=== PATIENT | female | born 1965 | race Hispanic/Latino ===

== ENCOUNTER → 2017-06-26 | Outpatient (CLI) | payer OTHER ==
[~2017-06-26] MED LIST: AEC81 PO; CALC-1038 PO; CETI-101 PO; CHOL200016 PO; LEVO175T9 PO; LEVO200T10 PO; PANT40TA PO; TRAM50TA4 PO; VALS160T2 PO
[2017-06-26 11:51] LABS: BASOPHILS % (AUTO) 0.8 % (0.0-5.0); EOSINOPHILS % (AUTO) 1.8 % (0.0-8.0); HEMATOCRIT 38.9 % (36-48); LYMPHOCYTES % (AUTO) 42.4 % (21.0-51.0); MEAN CORPUSCULAR HEMOGLOBIN 29.7 pg (27.0-33.0); MEAN CORPUSCULAR HGB CONC 34.3 g/dL (32.0-36.0); MEAN CORPUSCULAR VOLUME 86.8 fL (79-99); PLATELET COUNT (AUTO) 216 K/uL (130-400); RED BLOOD CELL COUNT(AUTO) 4.49 MIL/uL (4.00-5.50); RED CELL DISTRIBUTION WIDTH 13.3 % (11.0-15.5); WHITE BLOOD COUNT (AUTO) 6.3 K/uL (4.8-10.8)
[2017-06-26 11:56] LABS: HEMOGLOBIN A1C 6.1 % (4.0-6.0)
[2017-06-26 12:08] LABS: BILIRUBIN,TOTAL 0.6 mg/dL (0.2-1.0); CREATININE 0.7 mg/dL (0.5-1.5); POTASSIUM 3.7 mmol/L (3.5-5.1); THYROID STIMULATING HORMONE 7.96 uIU/mL (0.36-3.74); TOTAL PROTEIN, SERUM 7.4 g/dL (6.0-8.3)
== END | disposition home or self-care (01) ==
LOC: LAB 09:57
PROVIDERS: ATTEND Internal Medicine Endocrinology, Diabetes & Metabolism
DX: E11.65 Type 2 diabetes mellitus with hyperglycemia (principal); E03.8 Other specified hypothyroidism
CPT/HCPCS: 36415; 80053; 80061; 82043; 82570; 83036; 84439; 84443; 84481; 85025

== ENCOUNTER → 2017-09-18 | Outpatient (CLI) | payer OTHER ==
[2017-09-18 12:58] LABS: BASOPHILS % (AUTO) 0.7 % (0.0-5.0); EOSINOPHILS % (AUTO) 2.7 % (0.0-8.0); HEMATOCRIT 38.8 % (36-48); LYMPHOCYTES % (AUTO) 42.3 % (21.0-51.0); MEAN CORPUSCULAR HEMOGLOBIN 29.2 pg (27.0-33.0); MEAN CORPUSCULAR HGB CONC 34.1 g/dL (32.0-36.0); MEAN CORPUSCULAR VOLUME 85.7 fL (79-99); MONOCYTES % (AUTO) 4.6 % (3.0-13.0); NEUTROPHILS % (AUTO) 49.7 % (40.0-77.0); PLATELET COUNT (AUTO) 220 K/uL (130-400); RED BLOOD CELL COUNT(AUTO) 4.52 MIL/uL (4.00-5.50); RED CELL DISTRIBUTION WIDTH 12.3 % (11.0-15.5); WHITE BLOOD COUNT (AUTO) 5.5 K/uL (4.8-10.8)
[2017-09-18 13:18] LABS: ALBUMIN 3.8 g/dL (3.5-5.0); BILIRUBIN,TOTAL 0.6 mg/dL (0.2-1.0); CREATININE 0.7 mg/dL (0.5-1.5); POTASSIUM 4.1 mmol/L (3.5-5.1); THYROID STIMULATING HORMONE 0.02 uIU/mL (0.36-3.74); TOTAL PROTEIN, SERUM 7.6 g/dL (6.0-8.3)
== END ==
LOC: LAB 12:02
PROVIDERS: ATTEND Internal Medicine Endocrinology, Diabetes & Metabolism
DX: E11.9 Type 2 diabetes mellitus without complications (principal)
CPT/HCPCS: 36415; 80053; 80061; 82043; 82570; 83036; 84439; 84443; 84481; 85025

== ENCOUNTER → 2018-05-17 | Outpatient (CLI) | payer OTHER ==
[~2018-05-17] MED LIST changes: -CHOL200016 PO; +[UNRECOGNIZED DRUG - CODE] PO
== END | disposition home or self-care (01) ==
LOC: RAH 15:50
PROVIDERS: ATTEND Obstetrics & Gynecology
DX: Z12.31 Encounter for screening mammogram for malignant neoplasm of breast (principal)
CPT/HCPCS: 77067

== ENCOUNTER → 2018-06-04 | Outpatient (CLI) | payer OTHER ==
[2018-06-04 14:12] LABS: HEMATOCRIT 43.5 % (36-48); MEAN CORPUSCULAR HEMOGLOBIN 28.5 pg (27.0-33.0); MEAN CORPUSCULAR HGB CONC 32.8 g/dL (32.0-36.0); MEAN CORPUSCULAR VOLUME 86.7 fL (79-99); NUCLEATED RED BLOOD CELLS 0.1 % (0.0-0.19); PLATELET COUNT (AUTO) 228 K/uL (130-400); RED BLOOD CELL COUNT(AUTO) 5.02 MIL/uL (4.00-5.50); RED CELL DISTRIBUTION WIDTH 12.9 % (11.0-15.5); WHITE BLOOD COUNT (AUTO) 6.3 K/uL (4.8-10.8)
[2018-06-04 14:35] LABS: ALBUMIN 4.2 g/dL (3.5-5.0); BILIRUBIN,TOTAL 0.9 mg/dL (0.2-1.0); CREATININE 0.8 mg/dL (0.5-1.5); POTASSIUM 3.7 mmol/L (3.5-5.1); THYROID STIMULATING HORMONE 0.63 uIU/mL (0.36-3.74); TOTAL PROTEIN, SERUM 7.8 g/dL (6.0-8.3)
== END | disposition home or self-care (01) ==
LOC: LAB 09:12
PROVIDERS: ATTEND Internal Medicine
DX: E11.65 Type 2 diabetes mellitus with hyperglycemia (principal); E78.2 Mixed hyperlipidemia; E55.9 Vitamin D deficiency, unspecified; E03.8 Other specified hypothyroidism
CPT/HCPCS: 36415; 80053; 80061; 82043; 82306; 82570; 83036; 84439; 84443; 84481; 85027

== ENCOUNTER → 2018-07-11 | Outpatient (CLI) | payer OTHER ==
[~2018-07-11] MED LIST changes: +CHOL200016 PO; -[UNRECOGNIZED DRUG - CODE] PO
== END | disposition home or self-care (01) ==
LOC: RAH 12:25
PROVIDERS: ATTEND Internal Medicine
DX: J34.2 Deviated nasal septum (principal); J32.9 Chronic sinusitis, unspecified
CPT/HCPCS: 70486

== ENCOUNTER → 2018-09-24 | Outpatient (CLI) | payer OTHER ==
[2018-09-24 16:51] LABS: HEMATOCRIT 39.2 % (36-48); MEAN CORPUSCULAR HEMOGLOBIN 29.1 pg (27.0-33.0); MEAN CORPUSCULAR HGB CONC 33.7 g/dL (32.0-36.0); MEAN CORPUSCULAR VOLUME 86.5 fL (79-99); PLATELET COUNT (AUTO) 209 K/uL (130-400); RED BLOOD CELL COUNT(AUTO) 4.53 MIL/uL (4.00-5.50); RED CELL DISTRIBUTION WIDTH 13.5 % (11.0-15.5); WHITE BLOOD COUNT (AUTO) 5.8 K/uL (4.8-10.8)
[2018-09-24 17:11] LABS: HEMOGLOBIN A1C 6.6 % (4.0-6.0)
[2018-09-24 17:17] LABS: ALBUMIN 3.8 g/dL (3.5-5.0); BILIRUBIN,TOTAL 0.8 mg/dL (0.2-1.0); CREATININE 0.6 mg/dL (0.5-1.5); POTASSIUM 3.6 mmol/L (3.5-5.1); T4 (THYROXINE) 5.4 ug/dL (4.7-13.3); THYROID STIMULATING HORMONE 0.82 uIU/mL (0.36-3.74); TOTAL PROTEIN, SERUM 7.4 g/dL (6.0-8.3)
== END | disposition home or self-care (01) ==
LOC: LAB 14:26
PROVIDERS: ATTEND Internal Medicine Endocrinology, Diabetes & Metabolism
DX: E11.65 Type 2 diabetes mellitus with hyperglycemia (principal); E03.8 Other specified hypothyroidism; E55.9 Vitamin D deficiency, unspecified
CPT/HCPCS: 36415; 80053; 80061; 82043; 82306; 83036; 84436; 84439; 84443; 84480; 85027

== ENCOUNTER → 2018-11-05 | Outpatient (CLI) | payer OTHER | END | disposition home or self-care (01) | LOC: LAB 16:24 | PROVIDERS: ATTEND Internal Medicine Endocrinology, Diabetes & Metabolism | DX: E55.9 Vitamin D deficiency, unspecified (principal); N95.1 Menopausal and female climacteric states | CPT/HCPCS: 36415; 82306; 82670; 83001; 84403 ==

== ENCOUNTER → 2019-01-21 | Day surgery (SDC) | payer OTHER ==
[~2019-01-21] VITALS: Ht 160 cm; Wt 122.6 kg
[2019-01-21 16:45] LABS: HEMATOCRIT 42.3 % (36-48); MEAN CORPUSCULAR HEMOGLOBIN 29.2 pg (27.0-33.0); MEAN CORPUSCULAR HGB CONC 33.2 g/dL (32.0-36.0); MEAN CORPUSCULAR VOLUME 87.8 fL (79-99); NUCLEATED RED BLOOD CELLS 0.1 % (0.0-0.19); PLATELET COUNT (AUTO) 209 K/uL (130-400); RED BLOOD CELL COUNT(AUTO) 4.82 MIL/uL (4.00-5.50); RED CELL DISTRIBUTION WIDTH 12.9 % (11.0-15.5); WHITE BLOOD COUNT (AUTO) 5.4 K/uL (4.8-10.8)
--- NOTE | 2019-01-21 17:11 | NUR ---
Bariatric Counseling Visit 1/2 Pt seeking wt loss surgery for decreased health risk and improved quality of life. Pt reports multiple attempts at wt loss to restrictive dieting, weight watchers programs, incorporating a personal care aide, wt loss supplements, and [employer] fitness program. Pt states she was fit during childhood and young adult years into early marriage, of being at her lowest wt of 110#. Pt however started to experience wt gain with ankle injury a few years ago and after partial thyroidectomy surgery. Pt also expresses difficulty in maintaining a healthy lifestyle when working 12-16 hours/day job. Pt does however prepare breakfast and dinner meals at home. 24hr recall demonstrates moderate caloric intake, with daily consumption of diet soda and unsweetened tea. Pt educated on [employer] and balancing meals with all major food groups. Pt discusses other environmental issues affecting wt such as [id number] with young children, does majority of shopping for household and buys a lot of processed foods. Pt does buy vegetables for her and her when necessary. Pt finds most support and encouragement from Son and Best Friend who help to keep motivated during health journey. Pt notified of support groups, which Pt intends to attend in the future. Pt has been encouraged to set realistic goals for the upcoming month and review with RD in f/u visit: 1) Incorporate exercise 2) Decrease stress load at work 3) Improve nutrition knowledge RD has provided contact information to Pt to notify as questions or concerns arise. Addendum: 01/21/19 at [address] RD Amended: Links added.
[2019-01-21 17:24] LABS: HEMOGLOBIN A1C 6.3 % (4.0-6.0)
[2019-01-21 17:38] LABS: BILIRUBIN,TOTAL 0.5 mg/dL (0.2-1.0); CREATININE 0.7 mg/dL (0.5-1.5); POTASSIUM 3.7 mmol/L (3.5-5.1); THYROID STIMULATING HORMONE 0.79 uIU/mL (0.36-3.74); TOTAL PROTEIN, SERUM 7.9 g/dL (6.0-8.3)
== END | disposition home or self-care (01) ==
LOC: ENDO 14:53
PROVIDERS: ATTEND Internal Medicine
DX: E66.9 Obesity, unspecified (principal); I10 Essential (primary) hypertension; E11.9 Type 2 diabetes mellitus without complications; K21.9 Gastro-esophageal reflux disease without esophagitis
CPT/HCPCS: 36415; 80053; 80061; 82043; 82306; 83036; 84439; 84443; 84481; 85027; 97802

== ENCOUNTER 2019-02-04 06:25 | Day surgery (SDC) | payer OTHER ==
[2019-02-04 06:16] VITALS: BP 149/81
[~2019-02-04 06:25] MED LIST changes: +ARMOUR THYROID PO; -CALC-1038 PO; -CHOL200016 PO; -LEVO175T9 PO; -LEVO200T10 PO; +METF-527 PO; +RANI300C PO; +SODIUM CHLORIDE 0.9% 1000ML 1,000 ML IV ONE; +VITAMIN B12
[2019-02-04] MEDS ORDERED: PROPOFOL 10 MG/ML 20ML VIAL IV ONE ×2 (08:07→08:27)
[2019-02-04 08:42] VITALS: BP 103/51
[2019-02-04 08:47] VITALS: BP 120/55
[2019-02-04 08:52] VITALS: BP 106/62
[2019-02-04 08:57] VITALS: BP 113/72
== END 2019-02-04 09:08 | disposition home or self-care (01) ==
LOC: DAH 06:25 → ENDO 06:25
PROVIDERS: ATTEND Internal Medicine
DX: Z12.11 Encounter for screening for malignant neoplasm of colon (principal); D12.5 Benign neoplasm of sigmoid colon; K29.50 Unspecified chronic gastritis without bleeding; K21.0 Gastro-esophageal reflux disease with esophagitis; K57.30 Diverticulosis of large intestine without perforation or abscess without bleeding; Z90.710 Acquired absence of both cervix and uterus; K44.9 Diaphragmatic hernia without obstruction or gangrene; K31.89 Other diseases of stomach and duodenum; I10 Essential (primary) hypertension; E03.9 Hypothyroidism, unspecified; E78.5 Hyperlipidemia, unspecified; Z90.49 Acquired absence of other specified parts of digestive tract; Z98.890 Other specified postprocedural states; Z79.899 Other long term (current) drug therapy
CPT/HCPCS: 43239; 45385; 82948; A4606; J2704 ×2; J7030

== ENCOUNTER → 2019-04-17 | Outpatient (CLI) | payer OTHER ==
[~2019-04-17] MED LIST changes: +CALC-1093 PO; +CHOL500050 PO; +ESOM40CA54 PO; +MULT-1203 PO; -SODIUM CHLORIDE 0.9% 1000ML 1,000 ML IV ONE; +THYR240T PO; +VITA100049 PO
--- NOTE | 2019-04-17 16:33 | NUR ---
Bariatric Pre-Op Diet Education Visit: 3:30 PM - 4:15PM RD provided Bariatric Pre-Op Diet and Post-Op Diet education to Pt. RD reviewed Bariatric procedure diet guidelines with Patient. Pt with multiple questions. RD answered all questions. RD also provided contact information, RD to be contacted as diet and nutrition concerns arise. Pt to begin Pre-Op diet one week prior to procedure. RD to follow up post procedure.
== END | disposition home or self-care (01) ==
LOC: DTH 15:20
PROVIDERS: ATTEND Surgery
DX: E66.01 Morbid (severe) obesity due to excess calories (principal); I10 Essential (primary) hypertension; E89.0 Postprocedural hypothyroidism; Z90.49 Acquired absence of other specified parts of digestive tract; Z90.710 Acquired absence of both cervix and uterus; Z90.722 Acquired absence of ovaries, bilateral; Z90.79 Acquired absence of other genital organ(s); Z88.1 Allergy status to other antibiotic agents; Z88.3 Allergy status to other anti-infective agents; Z88.5 Allergy status to narcotic agent; Z91.018 Allergy to other foods
CPT/HCPCS: 97803

== ENCOUNTER 2019-04-25 07:57 | Inpatient (IN) | payer OTHER ==
[2019-04-22 14:23] VITALS: BP 149/76
[2019-04-22 14:31] LABS: CREATININE 0.7 mg/dL (0.5-1.5); POTASSIUM 4.3 mmol/L (3.5-5.1)
[2019-04-25] VITALS (22 sets, daily range): BP systolic 95–143; BP diastolic 48–89
[~2019-04-25] VITALS: Ht 158.8 cm; Wt 117.2 kg
[2019-04-25] MEDS: CLINDAMYCIN 600 MG/D5% WATER 50 ML IV SCH ×3 (06:00→19:36)
[~2019-04-25 07:57] MED LIST changes: +CEFOXITIN SODIUM 2 GM VIAL IVP SCH; -VITA100049 PO
[2019-04-25] MEDS ORDERED: SODIUM CHLORIDE 0.9% 1000ML 1,000 ML IV ONE (08:34)
[2019-04-25] MEDS ORDERED: KETAMINE 50MG/ML SYRINGE 50 MG/ML DISP.SYRIN IV ONE (08:42)
[2019-04-25] MEDS ORDERED: SUCCINYLCHOLINE 200MG/10ML SYR ONE (08:46)
[2019-04-25] MEDS ORDERED: LIDOCAINE PF 2% 5ML ABBOJECT ONE (08:46)
[2019-04-25] MEDS ORDERED: PROPOFOL 10 MG/ML 20ML VIAL IV ONE (08:46)
[2019-04-25] MEDS ORDERED: FAMOTIDINE/PF 20 MG/2 ML VIAL IV ONE (08:46)
[2019-04-25] MEDS ORDERED: MIDAZOLAM HCL 1 MG/ML 2ML VIAL ONE (08:47)
[2019-04-25] MEDS ORDERED: FENTANYL CITRATE PF 50 MCG/1 ML 2ML VIAL ONE (08:47)
[2019-04-25] MEDS ORDERED: ONDANSETRON HCL 4 MG/2 ML VIAL ONE ×3 (08:51→16:18)
[2019-04-25] MEDS ORDERED: BUPIVACAINE/EPI/PF 0.5% 30ML VIAL IJ ONE (08:56)
[2019-04-25] MEDS ORDERED: SCOPOLAMINE HYDROBROMIDE 1 EACH ADH..PATCH TD ONE (08:56)
[2019-04-25] MEDS ORDERED: METHYLENE BLUE 5 MG/ML AMP ONE (08:57)
[2019-04-25] MEDS ORDERED: DEXMEDETOMIDINE HCL IV SCH (09:01)
[2019-04-25] MEDS ORDERED: SODIUM CHLORIDE 0.9% IV SCH (09:01)
[2019-04-25] MEDS ORDERED: ROCURONIUM 10MG/1ML SYR 10 MG/ML ML ONE (09:07)
[2019-04-25] MEDS: CYANOCOBALAMIN (VITAMIN B-12) 1000 MCG/ML 1ML VIAL IM SCH ×2 (09:13→19:36)
[2019-04-25] MEDS: HEPARIN SODIUM 5000UNIT/ML 1ML VIAL SQ SCH ×3 (09:14→19:37)
[2019-04-25] MEDS ORDERED: MAGNESIUM SULFATE 1 GM/2 ML VIAL ONE ×2 (09:31→09:33)
[2019-04-25] MEDS ORDERED: CLINDAMYCIN PHOSPHATE 150 MG/ML 6ML VIAL ONE (09:33)
[2019-04-25] MEDS ORDERED: VITA100049 PO (11:02)
[2019-04-25] MEDS ORDERED: GLYCOPYRROLATE 1 MG/5 ML SYRINGE ONE (11:02)
[2019-04-25] MEDS ORDERED: NEOSTIGMINE 5MG/5ML SYR IV ONE (11:02)
[2019-04-25] MEDS ORDERED: CALDOLOR 800MG+NS 250ML 250 ML IV ONE (11:14)
--- NOTE | 2019-04-25 11:27 | NUR ---
MALLIKA HOLLIDAY HAS PRECEDEX 0.1 MCG RUNNING FROM OR. GANGA HOLLINSX IN 30 MINUTES, AT 1230. GIVE REMAINING OF FLUIDS, 450ML IN PACU. Addendum: 04/25/19 at 1159 by BEAU SANTIZO RN RN Amended: Links added.
[2019-04-25] MEDS ORDERED: DEXTROSE 50%-WATER 50 ML DISP.SYRIN IV PRN (15:00)
[2019-04-25] MEDS ORDERED: HYDROMORPHONE PCA 10 MG/50 ML 50 ML IV PRN (15:00)
[2019-04-25] MEDS ORDERED: GLUCAGON 1MG KIT 1 MG ML IM PRN (15:00)
[2019-04-25] MEDS ORDERED: LACTATED RINGERS 1000ML 1,000 ML IV ONE (15:41)
[2019-04-25] MEDS ORDERED: ONDANSETRON HCL 4 MG/2 ML VIAL IVP PRN (16:15)
[2019-04-25] MEDS ORDERED: PROMETHAZINE HCL 25 MG/ML 1ML AMPULE IM PRN (16:15)
[2019-04-25] MEDS: INSULIN HUMULIN R 100 UNIT/ML 3ML SQ SCH ×2 (16:50→23:43)
[2019-04-25] MEDS: LACTATED RINGERS 1000ML 1,000 ML IV SCH ×2 (17:45→23:00)
--- NOTE | 2019-04-25 20:09 | NUR ---
nausea c/o nausea no vomiting phenergan 12.5 mg im given left deltoid , tolerated well
--- NOTE | 2019-04-25 21:00 | NUR ---
med effect nausea subsided, ivf infusing well, dilaudid ship erector on stand by
--- NOTE | 2019-04-25 22:01 | NUR ---
nausea c/o nausea no vomiting, zofran 4 mg ivp given slowly , ivf infusing well, continue with npo
--- NOTE | 2019-04-25 23:00 | NUR ---
med effect patient resting comfortably , nad, ivf infusing well, nausea subsided
[2019-04-26 03:30] VITALS: BP 142/67
[2019-04-26] MEDS: HEPARIN SODIUM 5000UNIT/ML 1ML VIAL SQ SCH ×2 (03:53→17:06)
[2019-04-26 04:46] LABS: HEMATOCRIT 37.1 % (36-48); MEAN CORPUSCULAR HEMOGLOBIN 29.5 pg (27.0-33.0); MEAN CORPUSCULAR HGB CONC 33.8 g/dL (32.0-36.0); MEAN CORPUSCULAR VOLUME 87.2 fL (79-99); PLATELET COUNT (AUTO) 233 K/uL (130-400); RED BLOOD CELL COUNT(AUTO) 4.26 MIL/uL (4.00-5.50); RED CELL DISTRIBUTION WIDTH 12.4 % (11.0-15.5); WHITE BLOOD COUNT (AUTO) 10.6 K/uL (4.8-10.8)
[2019-04-26 05:04] LABS: CREATININE 0.6 mg/dL (0.5-1.5); POTASSIUM 3.6 mmol/L (3.5-5.1)
[2019-04-26] MEDS: LEVOTHYROXINE 100 MCG VIAL IV SCH (05:42)
[2019-04-26] MEDS: INSULIN HUMULIN R 100 UNIT/ML 3ML SQ SCH ×3 (05:42→16:56)
[2019-04-26] MEDS: LACTATED RINGERS 1000ML 1,000 ML IV SCH (05:47)
[2019-04-26 08:00] VITALS: BP 153/89
[2019-04-26] MEDS: FAMOTIDINE/PF 20 MG/2 ML VIAL IV SCH (08:53)
[2019-04-26] MEDS ORDERED: DIATR MEGLU/DIATRIZOATE SODIUM 30 ML BOTTLE ONE ×3 (09:24→09:36)
--- NOTE | 2019-04-26 11:11 | NUR ---
Nutrition intervention: Nutrition notification for gastric sleeve diet. Pt is s/p Gastric sleeve procedure. Pt currently NPO, passing gas and walking. Pt is s/p xray, pending diet advancement. Pt with no nutritional questions at the time. Pt aware of fluid intake and diet stages to follow. Recommendations: When medically feasible, advance diet therapy to Bariatric Stage I diet. Monitor PO intake and tolerance. Addendum: 04/26/19 at [address] RD Amended: Links added.
[2019-04-26 16:00] VITALS: BP 133/72
[2019-04-26 19:56] VITALS: BP 141/80
[2019-04-27] VITALS: BP 153/72
[2019-04-27] MEDS: HEPARIN SODIUM 5000UNIT/ML 1ML VIAL SQ SCH (03:46)
[2019-04-27 04:41] VITALS: BP 143/88
[2019-04-27] MEDS: INSULIN HUMULIN R 100 UNIT/ML 3ML SQ SCH ×2 (06:00)
[2019-04-27] MEDS: LEVOTHYROXINE 100 MCG VIAL IV SCH (06:43)
[2019-04-27 08:00] VITALS: BP 132/83
[2019-04-27] MEDS: FAMOTIDINE/PF 20 MG/2 ML VIAL IV SCH (08:39)
[2019-04-27] MEDS: LACTATED RINGERS 1000ML 1,000 ML IV SCH (08:40)
--- NOTE | 2019-04-27 10:54 | NUR ---
cm note pt resides at home with spouse indepedent with adls and ambulation. no dme. dc plan home. no dc needs. Addendum: 04/27/19 at 1055 by KHANH TAPIA CM Amended: Links added.
--- NOTE | 2019-04-27 12:20 | NUR ---
pt and stated understanding of all d/c instructions on after care for a sleeve gastrectomy, scripts given, home meds discussed, activity no lifting for 4 weeks discussed; iv access removed; bandaides taken off earlier by dr stinson; pt awaiting for ride to take her home at this time.
== END 2019-04-27 13:03 | disposition home or self-care (01) | DRG 621 ==
LOC: DAH 07:57 → 4AH 07:58 → DAH 07:58
PROVIDERS: ADMIT Surgery; ATTEND Surgery
PROC: 0DB64Z3 Excision of Stomach, Percutaneous Endoscopic Approach, Vertical (ICD-10-PCS; principal; 2019-04-25 09:37)
DX: E66.01 Morbid (severe) obesity due to excess calories (principal); E88.81 Metabolic syndrome and other insulin resistance; E03.9 Hypothyroidism, unspecified; I10 Essential (primary) hypertension; E11.9 Type 2 diabetes mellitus without complications; K21.9 Gastro-esophageal reflux disease without esophagitis; K44.9 Diaphragmatic hernia without obstruction or gangrene; Z68.42 Body mass index [BMI] 45.0-49.9, adult; Z88.5 Allergy status to narcotic agent; Z88.7 Allergy status to serum and vaccine; Z91.018 Allergy to other foods; Z88.8 Allergy status to other drugs, medicaments and biological substances
CPT/HCPCS: 36415; 74240; 80048; 82948; 85027; 88307; 96374; 96375; G0378; J0330; J1170; J1644; J1741; J2001; J2250; J2405; J2550; J2704; J2710; J3010; J3420; J3475; J3490; J7030; J7120; Q9963; Q9968

== ENCOUNTER → 2019-06-23 | Outpatient (CLI) | payer OTHER ==
[~2019-06-23] MED LIST changes: -CEFOXITIN SODIUM 2 GM VIAL IVP SCH; -CETI-101 PO; -PANT40TA PO; -TRAM50TA4 PO; +VITA100049 PO; -VITAMIN B12
[2019-06-23 12:25] LABS: HEMATOCRIT 42.9 % (36-48); MEAN CORPUSCULAR HEMOGLOBIN 28.2 pg (27.0-33.0); MEAN CORPUSCULAR HGB CONC 31.9 g/dL (32.0-36.0); MEAN CORPUSCULAR VOLUME 88.3 fL (79-99); PLATELET COUNT (AUTO) 216 K/uL (130-400); RED BLOOD CELL COUNT(AUTO) 4.86 MIL/uL (4.00-5.50); RED CELL DISTRIBUTION WIDTH 12.1 % (11.0-15.5); WHITE BLOOD COUNT (AUTO) 5.6 K/uL (4.8-10.8)
[2019-06-23 12:38] LABS: HEMOGLOBIN A1C 5.6 % (4.0-6.0)
[2019-06-23 12:52] LABS: ALANINE AMINOTRANSFERASE 31 U/L (12-78); ALBUMIN 3.8 g/dL (3.5-5.0); ASPARTATE AMINOTRANSFERASE 13 U/L (10-37); BILIRUBIN,TOTAL 0.6 mg/dL (0.2-1.0); CARBON DIOXIDE 31 mmol/L (21-32); CHLORIDE 106 mmol/L (101-111); CHOLESTEROL 148 mg/dL (<200); CREATININE 0.6 mg/dL (0.5-1.5); GLOMERULAR FILTR. RATE CALC 111 mL/min (>60); GLUCOSE,RANDOM 96 mg/dL (70-105); HDL CHOLESTEROL 51 mg/dL (35-85); LDL DIRECT 82 mg/dL (0-99); SODIUM SERUM 144 mmol/L (136-145); TOTAL PROTEIN, SERUM 7.3 g/dL (6.0-8.3); TRIGLYCERIDES 144 mg/dL (30-200); UREA NITROGEN, BLOOD 10 mg/dL (7-18)
[2019-06-23 13:02] LABS: THYROID STIMULATING HORMONE < 0.01 uIU/mL (0.36-3.74)
== END | disposition home or self-care (01) ==
LOC: LAB 10:29
PROVIDERS: ATTEND Internal Medicine Endocrinology, Diabetes & Metabolism
DX: E55.9 Vitamin D deficiency, unspecified (principal); E03.8 Other specified hypothyroidism; E11.65 Type 2 diabetes mellitus with hyperglycemia
CPT/HCPCS: 36415; 80053; 80061; 82043; 82306; 83036; 84439; 84443; 84481; 85027

== ENCOUNTER → 2019-07-29 | Outpatient (CLI) | payer OTHER ==
[2019-07-29 09:12] LABS: BASOPHILS % (AUTO) 0.9 % (0.0-5.0); EOSINOPHILS % (AUTO) 0.7 % (0.0-8.0); HEMATOCRIT 39.8 % (36-48); LYMPHOCYTES % (AUTO) 46.9 % (21.0-51.0); MEAN CORPUSCULAR HEMOGLOBIN 28.1 pg (27.0-33.0); MEAN CORPUSCULAR HGB CONC 32.9 g/dL (32.0-36.0); MEAN CORPUSCULAR VOLUME 85.4 fL (79-99); MONOCYTES % (AUTO) 5.7 % (3.0-13.0); NEUTROPHILS % (AUTO) 45.6 % (40.0-77.0); PLATELET COUNT (AUTO) 192 K/uL (130-400); RED BLOOD CELL COUNT(AUTO) 4.66 MIL/uL (4.00-5.50); WHITE BLOOD COUNT (AUTO) 4.5 K/uL (4.8-10.8)
[2019-07-29 09:20] LABS: HEMOGLOBIN A1C 5.5 % (4.0-6.0)
[2019-07-29 09:24] LABS: % IRON SATURATION 32.3 % (22-44)
[2019-07-29 09:49] LABS: ALANINE AMINOTRANSFERASE 25 U/L (12-78); ALBUMIN 3.6 g/dL (3.5-5.0); ASPARTATE AMINOTRANSFERASE 13 U/L (10-37); BILIRUBIN,TOTAL 0.7 mg/dL (0.2-1.0); CARBON DIOXIDE 26 mmol/L (21-32); CHLORIDE 108 mmol/L (101-111); CHOLESTEROL 144 mg/dL (<200); CREATININE 0.6 mg/dL (0.5-1.5); GLOMERULAR FILTR. RATE CALC 111 mL/min (>60); GLUCOSE,RANDOM 99 mg/dL (70-105); HDL CHOLESTEROL 57 mg/dL (35-85); LDL DIRECT 77 mg/dL (0-99); POTASSIUM 3.8 mmol/L (3.5-5.1); SODIUM SERUM 142 mmol/L (136-145); TRIGLYCERIDES 90 mg/dL (30-200); UREA NITROGEN, BLOOD 10 mg/dL (7-18)
== END | disposition home or self-care (01) ==
LOC: OIH 08:24
PROVIDERS: ATTEND Family Medicine
DX: E89.0 Postprocedural hypothyroidism (principal); G47.30 Sleep apnea, unspecified; G73.3 Myasthenic syndromes in other diseases classified elsewhere; E11.42 Type 2 diabetes mellitus with diabetic polyneuropathy; E66.01 Morbid (severe) obesity due to excess calories; I10 Essential (primary) hypertension; E78.2 Mixed hyperlipidemia; G47.33 Obstructive sleep apnea (adult) (pediatric); E83.51 Hypocalcemia; Z98.84 Bariatric surgery status
CPT/HCPCS: 36415; 80053; 80061; 82306; 82525; 82607; 82746; 83036; 83540; 83550; 84425; 84446; 84590; 84597; 84630; 85025

== ENCOUNTER → 2019-09-10 | Outpatient (CLI) | payer OTHER ==
[2019-09-10 13:03] LABS: THYROID STIMULATING HORMONE 0.06 uIU/mL (0.36-3.74)
== END | disposition home or self-care (01) ==
LOC: LAB 09-09 16:46
PROVIDERS: ATTEND Internal Medicine Endocrinology, Diabetes & Metabolism
DX: E03.8 Other specified hypothyroidism (principal)
CPT/HCPCS: 36415; 84439; 84443; 84481

== ENCOUNTER → 2019-11-13 | Outpatient (CLI) | payer OTHER ==
[2019-11-13 12:18] LABS: THYROID STIMULATING HORMONE 2.13 uIU/mL (0.36-3.74)
== END | disposition home or self-care (01) ==
LOC: OIH 11:04
PROVIDERS: ATTEND Internal Medicine Endocrinology, Diabetes & Metabolism
DX: E03.8 Other specified hypothyroidism (principal); Z79.890 Hormone replacement therapy
CPT/HCPCS: 36415; 82670; 83001; 84402; 84403; 84439; 84443; 84481

== ENCOUNTER → 2020-02-19 | Outpatient (CLI) | payer OTHER ==
[2020-02-19 16:02] LABS: HEMATOCRIT 41.9 % (36-48); MEAN CORPUSCULAR HEMOGLOBIN 29.5 pg (27.0-33.0); MEAN CORPUSCULAR HGB CONC 32.7 g/dL (32.0-36.0); MEAN CORPUSCULAR VOLUME 90.3 fL (79-99); RED BLOOD CELL COUNT(AUTO) 4.64 MIL/uL (4.00-5.50); WHITE BLOOD COUNT (AUTO) 5.8 K/uL (4.8-10.8)
[2020-02-19 16:14] LABS: HEMOGLOBIN A1C 5.6 % (4.0-6.0)
[2020-02-19 16:47] LABS: ALBUMIN 3.9 g/dL (3.5-5.0); BILIRUBIN,TOTAL 0.7 mg/dL (0.2-1.0); CREATININE 0.6 mg/dL (0.5-1.5); POTASSIUM 3.7 mmol/L (3.5-5.1); THYROID STIMULATING HORMONE 1.03 uIU/mL (0.36-3.74); TOTAL PROTEIN, SERUM 7.3 g/dL (6.0-8.3)
== END | disposition home or self-care (01) ==
LOC: LAB 15:17
PROVIDERS: ATTEND Internal Medicine
DX: E03.8 Other specified hypothyroidism (principal); E11.65 Type 2 diabetes mellitus with hyperglycemia; E55.9 Vitamin D deficiency, unspecified; E78.2 Mixed hyperlipidemia
CPT/HCPCS: 36415; 80053; 80061; 82043; 82306; 82607; 83036; 84439; 84443; 84481; 85027

== ENCOUNTER → 2020-05-20 | Outpatient (CLI) | payer OTHER ==
[~2020-05-20] MED LIST changes: -CALC-1093 PO; +CALC-1277 PO
[2020-05-20 09:31] LABS: BASOPHILS % (AUTO) 0.7 % (0.0-5.0); EOSINOPHILS % (AUTO) 3.3 % (0.0-8.0); HEMATOCRIT 42.3 % (36-48); LYMPHOCYTES % (AUTO) 49.3 % (21.0-51.0); MEAN CORPUSCULAR HEMOGLOBIN 29.7 pg (27.0-33.0); MEAN CORPUSCULAR HGB CONC 32.6 g/dL (32.0-36.0); MEAN CORPUSCULAR VOLUME 91.2 fL (79-99); MONOCYTES % (AUTO) 4.4 % (3.0-13.0); NEUTROPHILS % (AUTO) 42.1 % (40.0-77.0); PLATELET COUNT (AUTO) 196 K/uL (130-400); RED BLOOD CELL COUNT(AUTO) 4.64 MIL/uL (4.00-5.50); WHITE BLOOD COUNT (AUTO) 4.5 K/uL (4.8-10.8)
[2020-05-20 09:45] LABS: HEMOGLOBIN A1C 5.7 % (4.0-6.0)
[2020-05-20 09:46] LABS: % IRON SATURATION 41.7 % (22-44)
[2020-05-20 10:11] LABS: BILIRUBIN,TOTAL 0.8 mg/dL (0.2-1.0); CREATININE 0.6 mg/dL (0.5-1.5); POTASSIUM 4.2 mmol/L (3.5-5.1); TOTAL PROTEIN, SERUM 7.4 g/dL (6.0-8.3)
== END | disposition home or self-care (01) ==
LOC: LAB 05-19 09:19
PROVIDERS: ATTEND Family Medicine
DX: E78.2 Mixed hyperlipidemia (principal); E66.01 Morbid (severe) obesity due to excess calories; E11.42 Type 2 diabetes mellitus with diabetic polyneuropathy; I10 Essential (primary) hypertension
CPT/HCPCS: 36415; 80053; 80061; 82306; 82607; 83036; 83540; 83550; 84446; 84590; 84597; 84630; 85025

== ENCOUNTER → 2020-07-15 | Outpatient (CLI) | payer OTHER ==
[2020-07-15 12:13] LABS: BASOPHILS % (AUTO) 0.7 % (0.0-5.0); HEMATOCRIT 38.2 % (36-48); LYMPHOCYTES % (AUTO) 36.6 % (21.0-51.0); MEAN CORPUSCULAR HEMOGLOBIN 29.9 pg (27.0-33.0); MEAN CORPUSCULAR HGB CONC 33.2 g/dL (32.0-36.0); MEAN CORPUSCULAR VOLUME 89.9 fL (79-99); MONOCYTES % (AUTO) 4.8 % (3.0-13.0); NEUTROPHILS % (AUTO) 55.7 % (40.0-77.0); PLATELET COUNT (AUTO) 203 K/uL (130-400); RED BLOOD CELL COUNT(AUTO) 4.25 MIL/uL (4.00-5.50); RED CELL DISTRIBUTION WIDTH 11.8 % (11.0-15.5); WHITE BLOOD COUNT (AUTO) 5.9 K/uL (4.8-10.8)
[2020-07-15 12:20] LABS: HEMOGLOBIN A1C 5.5 % (4.0-6.0)
[2020-07-15 12:46] LABS: ALBUMIN 3.8 g/dL (3.5-5.0); BILIRUBIN,TOTAL 0.5 mg/dL (0.2-1.0); CREATININE 0.6 mg/dL (0.5-1.5); POTASSIUM 3.6 mmol/L (3.5-5.1); THYROID STIMULATING HORMONE 1.22 uIU/mL (0.36-3.74); TOTAL PROTEIN, SERUM 7.2 g/dL (6.0-8.3)
== END | disposition home or self-care (01) ==
LOC: OIH 10:53
PROVIDERS: ATTEND Internal Medicine Endocrinology, Diabetes & Metabolism
DX: E11.65 Type 2 diabetes mellitus with hyperglycemia (principal); E03.8 Other specified hypothyroidism; E55.9 Vitamin D deficiency, unspecified
CPT/HCPCS: 36415; 80053; 80061; 82043; 82306; 83036; 84439; 84443; 84481; 85025

== ENCOUNTER → 2020-11-02 | Outpatient (CLI) | payer OTHER ==
[2020-11-02 11:12] LABS: BASOPHILS % (AUTO) 0.6 % (0.0-5.0); EOSINOPHILS % (AUTO) 0.2 % (0.0-8.0); HEMATOCRIT 39.7 % (36-48); LYMPHOCYTES % (AUTO) 41.4 % (21.0-51.0); MEAN CORPUSCULAR HEMOGLOBIN 29.9 pg (27.0-33.0); MEAN CORPUSCULAR HGB CONC 33.2 g/dL (32.0-36.0); MONOCYTES % (AUTO) 5.4 % (3.0-13.0); NEUTROPHILS % (AUTO) 52.2 % (40.0-77.0); PLATELET COUNT (AUTO) 181 K/uL (130-400); RED BLOOD CELL COUNT(AUTO) 4.41 MIL/uL (4.00-5.50); RED CELL DISTRIBUTION WIDTH 11.8 % (11.0-15.5)
[2020-11-02 11:22] LABS: HEMOGLOBIN A1C 5.6 % (4.0-6.0)
[2020-11-02 11:49] LABS: THYROID STIMULATING HORMONE 2.59 uIU/mL (0.36-3.74)
[2020-11-02 11:55] LABS: BILIRUBIN,TOTAL 0.8 mg/dL (0.2-1.0); CREATININE 0.6 mg/dL (0.5-1.5); POTASSIUM 3.8 mmol/L (3.5-5.1); TOTAL PROTEIN, SERUM 7.2 g/dL (6.0-8.3)
[2020-11-02 12:21] LABS: % IRON SATURATION 36.6 % (22-44)
== END | disposition home or self-care (01) ==
LOC: LAB 10:00
PROVIDERS: ATTEND Family Medicine
DX: I11.0 Hypertensive heart disease with heart failure (principal); N95.1 Menopausal and female climacteric states; E11.42 Type 2 diabetes mellitus with diabetic polyneuropathy; E66.01 Morbid (severe) obesity due to excess calories; E78.2 Mixed hyperlipidemia
CPT/HCPCS: 36415; 80053; 80061; 82306; 82607; 82670; 83001; 83002; 83036; 83540; 83550; 84144; 84146; 84402; 84403; 84439; 84443; 84446; 84481; 84590; 84597; 84630; 85025

== ENCOUNTER → 2020-12-14 | Outpatient (CLI) | payer OTHER ==
[2020-12-14 11:35] LABS: HEMATOCRIT 39.7 % (36-48); MEAN CORPUSCULAR HEMOGLOBIN 29.8 pg (27.0-33.0); MEAN CORPUSCULAR HGB CONC 33.2 g/dL (32.0-36.0); MEAN CORPUSCULAR VOLUME 89.6 fL (79-99); RED BLOOD CELL COUNT(AUTO) 4.43 MIL/uL (4.00-5.50); RED CELL DISTRIBUTION WIDTH 11.9 % (11.0-15.5); WHITE BLOOD COUNT (AUTO) 5.1 K/uL (4.8-10.8)
[2020-12-14 11:51] LABS: HEMOGLOBIN A1C 5.7 % (4.0-6.0)
[2020-12-14 12:20] LABS: ALBUMIN 3.8 g/dL (3.5-5.0); BILIRUBIN,TOTAL 0.6 mg/dL (0.2-1.0); CREATININE 0.7 mg/dL (0.5-1.5); THYROID STIMULATING HORMONE 2.4 uIU/mL (0.36-3.74); TOTAL PROTEIN, SERUM 7.6 g/dL (6.0-8.3)
== END | disposition home or self-care (01) ==
LOC: LAB 11:00
PROVIDERS: ATTEND Internal Medicine Endocrinology, Diabetes & Metabolism
DX: I10 Essential (primary) hypertension (principal); E11.9 Type 2 diabetes mellitus without complications; E11.65 Type 2 diabetes mellitus with hyperglycemia; E03.8 Other specified hypothyroidism; E55.9 Vitamin D deficiency, unspecified
CPT/HCPCS: 36415; 80053; 80061; 82043; 82306; 83036; 83970; 84439; 84443; 84481; 85027

== ENCOUNTER → 2022-09-01 | Outpatient (CLI) | payer OTHER ==
[~2022-09-01] MED LIST changes: +IOHEXOL 350 MG/ML 100ML INFUS..BTL IV ONE
== END | disposition home or self-care (01) ==
LOC: RAH 08:46
PROVIDERS: ATTEND Internal Medicine
DX: R10.9 Unspecified abdominal pain (principal); R50.9 Fever, unspecified; R31.9 Hematuria, unspecified; Z90.49 Acquired absence of other specified parts of digestive tract
CPT/HCPCS: 74177; Q9967

== ENCOUNTER → 2022-10-02 | Outpatient (CLI) | payer OTHER ==
[~2022-10-02] MED LIST changes: -IOHEXOL 350 MG/ML 100ML INFUS..BTL IV ONE
[2022-10-02 12:23] LABS: HEMATOCRIT 40.7 % (36-48); MEAN CORPUSCULAR HEMOGLOBIN 28.8 pg (27.0-33.0); MEAN CORPUSCULAR HGB CONC 32.2 g/dL (32.0-36.0); MEAN CORPUSCULAR VOLUME 89.5 fL (79-99); RED BLOOD CELL COUNT(AUTO) 4.55 MIL/uL (4.00-5.50); RED CELL DISTRIBUTION WIDTH 12.2 % (11.0-15.5); WHITE BLOOD COUNT (AUTO) 5.2 K/uL (4.8-10.8)
[2022-10-02 12:36] LABS: APPEARANCE,URINE CLEAR (CLEAR); BILIRUBIN,URINE NEGATIVE (NEGATIVE); COLOR,URINE LIGHT-YELLOW (YELLOW); GLUCOSE, URINE (UA) NEGATIVE (NEGATIVE); KETONES,URINE NEGATIVE (NEGATIVE); LEUKOCYTE ESTERASE ,URINE NEGATIVE Leu/uL (NEGATIVE); NITRATE,URINE NEGATIVE (NEGATIVE); OCCULT BLOOD,URINE NEGATIVE (NEGATIVE); PH,URINE 6.5 (5.0-8.0); PROTEIN,URINE NEGATIVE (NEGATIVE); UROBILINOGEN,URINE 0.2 mg/dL (0.2-1.0)
[2022-10-02 15:10] LABS: ALBUMIN 4.1 g/dL (3.5-5.0); CREATININE 0.7 mg/dL (0.5-1.5); POTASSIUM 3.8 mmol/L (3.5-5.1); THYROID STIMULATING HORMONE 1.89 uIU/mL (0.36-3.74); TOTAL PROTEIN, SERUM 7.3 g/dL (6.0-8.3)
[2022-10-04 15:04] LABS: CREATININE,SERUM FOR CRCL 0.7 mg/dL (0.6-1.3)
== END | disposition home or self-care (01) ==
LOC: LAB 11:19
PROVIDERS: ATTEND Internal Medicine
DX: E11.65 Type 2 diabetes mellitus with hyperglycemia (principal); E55.9 Vitamin D deficiency, unspecified; D51.9 Vitamin B12 deficiency anemia, unspecified; E03.9 Hypothyroidism, unspecified; E78.2 Mixed hyperlipidemia
CPT/HCPCS: 36415; 80053; 80061; 81003; 82043; 82306; 82340; 82575; 82607; 83036; 83970; 84439; 84443; 84481; 85027

== ENCOUNTER → 2023-04-03 | Outpatient (CLI) | payer OTHER ==
[2023-04-03 15:41] LABS: MEAN CORPUSCULAR HEMOGLOBIN 29.5 pg (27.0-33.0); MEAN CORPUSCULAR HGB CONC 32.9 g/dL (32.0-36.0); MEAN CORPUSCULAR VOLUME 89.7 fL (79-99); RED BLOOD CELL COUNT(AUTO) 4.68 MIL/uL (4.00-5.50); RED CELL DISTRIBUTION WIDTH 12.3 % (11.0-15.5); WHITE BLOOD COUNT (AUTO) 5.7 K/uL (4.8-10.8)
[2023-04-03 15:51] LABS: HEMOGLOBIN A1C 5.3 % (4.0-6.0)
[2023-04-03 16:07] LABS: ALBUMIN 4.3 g/dL (3.5-5.0); BILIRUBIN,TOTAL 0.9 mg/dL (0.2-1.0); CREATININE 0.8 mg/dL (0.5-1.5); POTASSIUM 3.8 mmol/L (3.5-5.1); THYROID STIMULATING HORMONE 0.91 uIU/mL (0.36-3.74); TOTAL PROTEIN, SERUM 7.6 g/dL (6.0-8.3)
== END | disposition home or self-care (01) ==
LOC: LAB 13:12
PROVIDERS: ATTEND Internal Medicine Endocrinology, Diabetes & Metabolism
DX: E11.65 Type 2 diabetes mellitus with hyperglycemia (principal); E78.2 Mixed hyperlipidemia; E83.51 Hypocalcemia
CPT/HCPCS: 36415; 80053; 80061; 82043; 82306; 82570; 83036; 84439; 84443; 84481; 85027

== ENCOUNTER 2023-09-06 08:36 | Day surgery (SDC) | payer OTHER ==
[2023-09-06] VITALS (11 sets, daily range): BP systolic 97–124; BP diastolic 50–86; PULSE 70–82; RESP 14–18
[~2023-09-06] VITALS: Ht 160 cm; Wt 95.3 kg
[~2023-09-06 08:36] MED LIST changes: -CALC-1277 PO; -ESOM40CA54 PO; +LOSARTAN PO; -METF-527 PO; -MULT-1203 PO; +PANT40TA55 PO; -RANI300C PO; -THYR240T PO; +TIRZ15PE SQ; -VALS160T2 PO; -VITA100049 PO
[2023-09-06] MEDS: 0.9%NACL 1000ML 1,000 ML IV ONE (09:06)
[2023-09-06] MEDS ORDERED: PROPOFOL 10 MG/ML 20ML VIAL IV ONE (11:03)
== END 2023-09-06 12:50 | disposition home or self-care (01) ==
LOC: ENDO 08:36 → DAH 08:36 → ENDO 12:50
PROVIDERS: ATTEND Internal Medicine
DX: Z12.11 Encounter for screening for malignant neoplasm of colon (principal); K57.30 Diverticulosis of large intestine without perforation or abscess without bleeding; K21.00 Gastro-esophageal reflux disease with esophagitis, without bleeding; K44.9 Diaphragmatic hernia without obstruction or gangrene; E66.9 Obesity, unspecified; I10 Essential (primary) hypertension; E11.9 Type 2 diabetes mellitus without complications; E03.9 Hypothyroidism, unspecified; E78.5 Hyperlipidemia, unspecified; Z88.6 Allergy status to analgesic agent; Z79.82 Long term (current) use of aspirin; Z79.84 Long term (current) use of oral hypoglycemic drugs; Z90.710 Acquired absence of both cervix and uterus; Z90.49 Acquired absence of other specified parts of digestive tract; Z98.890 Other specified postprocedural states; Z98.84 Bariatric surgery status; Z86.010 Personal history of colon polyps; Z82.49 Family history of ischemic heart disease and other diseases of the circulatory system; Z80.3 Family history of malignant neoplasm of breast; Z83.3 Family history of diabetes mellitus; Z68.37 Body mass index [BMI] 37.0-37.9, adult
CPT/HCPCS: 82948 ×2; 45378; J7030 ×2; J2704; A4620; A4215 ×2; A4223; A7002; A4222; A4221; A4663; A4606; G0105; J3490

== ENCOUNTER → 2024-04-10 | Outpatient (CLI) | payer OTHER ==
[2024-04-10 08:43] LABS: BASOPHILS # (AUTO) 0.03 K/uL (0.00-0.20); BASOPHILS % (AUTO) 0.5 % (0.0-5.0); EOSINOPHILS # (AUTO) 0.03 K/uL (0.00-0.70); EOSINOPHILS % (AUTO) 0.5 % (0.0-8.0); HEMATOCRIT 41.2 % (36-48); IMMATURE GRANULOCYTE ABSOLUTE 0.04 K/uL (0-1); LYMPHOCYTES # (AUTO) 2.2 K/uL (1.0-4.8); LYMPHOCYTES % (AUTO) 35.2 % (21.0-51.0); MEAN CORPUSCULAR HEMOGLOBIN 29.9 pg (27.0-33.0); MEAN CORPUSCULAR VOLUME 90.5 fL (79-99); MONOCYTES # (AUTO) 0.4 K/uL (0.1-1.0); MONOCYTES % (AUTO) 6.6 % (3.0-13.0); NEUTROPHILS # (AUTO) 3.6 K/uL (1.8-7.7); NEUTROPHILS % (AUTO) 56.6 % (40.0-77.0); PLATELET COUNT (AUTO) 229 K/uL (130-400); RED BLOOD CELL COUNT(AUTO) 4.55 MIL/uL (4.00-5.50); RED CELL DISTRIBUTION WIDTH 11.9 % (11.0-15.5); WHITE BLOOD COUNT (AUTO) 6.4 K/uL (4.8-10.8)
[2024-04-10 08:49] LABS: HEMOGLOBIN A1C 5.3 % (4.0-6.0)
[2024-04-10 09:03] LABS: APPEARANCE,URINE CLEAR (CLEAR); BILIRUBIN,URINE NEGATIVE (NEGATIVE); COLOR,URINE YELLOW (YELLOW); GLUCOSE, URINE (UA) NEGATIVE (NEGATIVE); KETONES,URINE NEGATIVE (NEGATIVE); LEUKOCYTE ESTERASE ,URINE NEGATIVE Leu/uL (NEGATIVE); NITRATE,URINE NEGATIVE (NEGATIVE); OCCULT BLOOD,URINE SMALL (NEGATIVE); PROTEIN,URINE NEGATIVE (NEGATIVE); UROBILINOGEN,URINE 0.2 mg/dL (0.2-1.0)
[2024-04-10 09:10] LABS: ADD UA MICROSCOPIC YES
[2024-04-10 09:17] LABS: ALBUMIN 3.9 g/dL (3.5-5.0); BILIRUBIN,TOTAL 0.8 mg/dL (0.2-1.0); CREATININE 0.9 mg/dL (0.5-1.0); POTASSIUM 4.2 mmol/L (3.5-5.1); THYROID STIMULATING HORMONE 1.35 uIU/mL (0.36-3.74); TOTAL PROTEIN, SERUM 7.4 g/dL (6.0-8.3)
[2024-04-10 09:20] LABS: BACTERIA,URINE RARE /HPF (None Seen); MUCUS,URINE RARE LPF (None Seen); SQUAMOUS EPITHELIAL CELL,UR FEW /HPF (0-2); WBC,URINE 0-1 /HPF (0-1)
== END | disposition home or self-care (01) ==
LOC: LAB 08:08
PROVIDERS: ATTEND Internal Medicine Endocrinology, Diabetes & Metabolism
DX: I10 Essential (primary) hypertension (principal); E55.9 Vitamin D deficiency, unspecified; E78.2 Mixed hyperlipidemia; E11.65 Type 2 diabetes mellitus with hyperglycemia; E03.8 Other specified hypothyroidism; D51.9 Vitamin B12 deficiency anemia, unspecified
CPT/HCPCS: 36415; 80053; 80061; 81001; 82043; 82306; 82570; 82607; 83036; 84439; 84443; 84481; 85025

== ENCOUNTER → 2024-10-20 | Outpatient (CLI) | payer OTHER ==
[2024-10-20 13:23] LABS: BASOPHILS # (AUTO) 0.05 K/uL (0.00-0.20); BASOPHILS % (AUTO) 0.9 % (0.0-5.0); EOSINOPHILS # (AUTO) 0.02 K/uL (0.00-0.70); EOSINOPHILS % (AUTO) 0.4 % (0.0-8.0); IMMATURE GRANULOCYTE ABSOLUTE 0.03 K/uL (0-1); LYMPHOCYTES # (AUTO) 2.3 K/uL (1.0-4.8); LYMPHOCYTES % (AUTO) 40.5 % (21.0-51.0); MEAN CORPUSCULAR HEMOGLOBIN 29.3 pg (27.0-33.0); MEAN CORPUSCULAR HGB CONC 32.6 g/dL (32.0-36.0); MEAN CORPUSCULAR VOLUME 89.9 fL (79-99); MONOCYTES # (AUTO) 0.3 K/uL (0.1-1.0); MONOCYTES % (AUTO) 5.7 % (3.0-13.0); NEUTROPHILS # (AUTO) 2.9 K/uL (1.8-7.7); PLATELET COUNT (AUTO) 234 K/uL (130-400); RED BLOOD CELL COUNT(AUTO) 4.67 MIL/uL (4.00-5.50); RED CELL DISTRIBUTION WIDTH 12.3 % (11.0-15.5); WHITE BLOOD COUNT (AUTO) 5.6 K/uL (4.8-10.8)
[2024-10-20 13:46] LABS: ALBUMIN 4.1 g/dL (3.5-5.0); BILIRUBIN,TOTAL 0.8 mg/dL (0.2-1.0); CREATININE 0.8 mg/dL (0.5-1.0); POTASSIUM 4.1 mmol/L (3.5-5.1); THYROID STIMULATING HORMONE 1.87 uIU/mL (0.36-3.74); TOTAL PROTEIN, SERUM 7.3 g/dL (6.0-8.3)
[2024-10-20 14:15] LABS: HEMOGLOBIN A1C 5.4 % (4.0-6.0)
== END | disposition home or self-care (01) ==
LOC: LAB 12:24
PROVIDERS: ATTEND Internal Medicine Endocrinology, Diabetes & Metabolism
DX: E11.65 Type 2 diabetes mellitus with hyperglycemia (principal); E78.2 Mixed hyperlipidemia; E03.8 Other specified hypothyroidism; E55.9 Vitamin D deficiency, unspecified
CPT/HCPCS: 36415; 80053; 80061; 82306; 83036; 84439; 84443; 84481; 85025